=== PATIENT | male | born 1945 | race Hispanic/Latino ===

== ENCOUNTER 2020-03-12 15:16 | Inpatient (IN) | payer MEDICARE ==
[~2020-03-12] VITALS: Ht 177.8 cm; Wt 122.5 kg
[2020-03-12] MEDS ORDERED: FUROSEMIDE INJ 10 MG/ML 4 ML VIAL IV ONE (16:15)
--- NOTE | 2020-03-12 16:37 | Diagnostic Imaging Report ---
Chest, 2 views, 03/12/2020. History: Shortness of breath. Comparison: None available. Findings: The cardiomediastinal silhouette and pulmonary vasculature are prominent with hazy bilateral perihilar and bibasilar opacities. There is minimal blunting of the costophrenic sulci bilaterally. A small amount of fluid is noted within the major fissure. There are no acute osseous or soft tissue abnormalities. Impression: Findings suggestive of mild CHF with bibasilar atelectasis and small pleural effusions. Signed by: Kenny Wright on 03/12/2020 4:33 PM
[2020-03-12] MEDS ORDERED: FUROSEMIDE INJ 10 MG/ML 4 ML VIAL ONE (16:41)
--- NOTE | 2020-03-12 17:12 | NUR ---
pt is not sure of his home medications. advised for pt to have bring meds from home if admits
[2020-03-12] MEDS ORDERED: ONDANSETRON HCL INJ 2MG/ML 2ML 2 MG/ML VIAL IV STA (17:18)
[2020-03-12] MEDS ORDERED: KETOROLAC TROMETHAMINE 30 MG/ML VIAL IV STA (17:18)
[2020-03-12] MEDS ORDERED: LASIX40 MG PO (17:28)
[2020-03-12] MEDS ORDERED: ALBUTEROL0.63 MG/3 INH (17:28)
[2020-03-12] MEDS ORDERED: LOTRIMIN AF12 GM TOP (17:28)
[2020-03-12] MEDS ORDERED: METOPROLOL TART75 MG (17:28)
[2020-03-12] MEDS ORDERED: METFORMIN HCL850 MG PO (17:28)
[2020-03-12] MEDS ORDERED: FLUOCINONIDE120 GM TOP (17:28)
[2020-03-12] MEDS ORDERED: ISOSORBIDE MONO30 MG PO (17:28)
[2020-03-12] MEDS ORDERED: GLIMEPIRIDE2 MG PO (17:28)
--- OUTSIDE RECORDS SUMMARY | 2020-03-12 17:34 | XMS REPORT | Clinical Summary ---
Author Author NITZA Concur[facility] CorporationSt[facility] Medical CenterOnTrak Software [facility] Concur[facility] CorporationSt[facility] CenterEquiendo [facility] Address Unknown Phone Unavailable Care Team Providers Care Brewery Technician Name Role Phone Robi Levine MD PCP Allergies No Known Allergies Medications End Date Status Medication Sig Dispensed Refills Start Date Active amLODIPine (NORVASC) 10 Take 10 mg by 0 MG tablet mouth daily. Active aspirin 325 MG tablet Take 325 mg 0 by mouth daily. Active atorvastatin (LIPITOR) 20 Take 20 mg by 0 MG tablet mouth daily. Active benazepril (LOTENSIN) 20 Take 20 mg by 0 MG tablet mouth 3 (three) times daily. Active fenofibrate Take 160 mg 0 (TRIGLIDE,LOFIBRA) 160 MG by mouth tablet daily. Active furosemide (LASIX) 40 MG Take 40 mg by 0 tablet mouth 2 (two) times daily. Active glimepiride (AMARYL) 2 MG Take 2 mg by 0 tablet mouth 2 (two) times daily . Active hydrocortisone Place 0 (ANUSOL-HC) 2.5 % rectal rectally 2 cream (two) times daily. Active meclizine (ANTIVERT) 12.5 Take 12.5 mg 0 mg tablet by mouth 3 (three) times daily as needed. Active metFORMIN (GLUCOPHAGE) Take 850 mg 0 850 MG tablet by mouth 3 (three) times daily. Active omeprazole (PRILOSEC) 20 Take 20 mg by 0 MG capsule mouth daily. Active saxagliptin 5 mg Tab Take by 0 mouth. Active oxymetazoline (AFRIN) 2 sprays by 0 0.05 % nasal spray Nasal route 2 (two) times daily as needed for Congestion. Active metoprolol (LOPRESSOR) 25 Take 12.5 mg 0 12/2 1/201 MG tablet by mouth 2 7 (two) times daily. Active Problems Problem Noted Date CAD (coronary artery disease) 06/02/2017 Exertional angina 06/02/2017 Essential hypertension 06/02/2017 Mixed hyperlipidemia 06/02/2017 Abnormal nuclear stress test ( moderate inferior fixe d defect ) 05-06-17 06/02/2017 Social History Date Tobacco Use Types Packs/Day Years Used Never Smoker Smokeless Tobacco: Never Used Drinks/Week oz/Week Comments Alcohol Use No Sex Assigned at Date Recorded Not on file Last Filed Vital Signs Not on file Plan of Treatment Health Maintenance Due Date Last Done Comments PNEUMOCOCCAL 65+ YRS (2 2012 04/20/2016, of 2 - PPSV23) 04/28/2015, 10/15/2010 MEDICARE ANNUAL WELLNESS 05/31/2018 (YEAR 2 or FIRST YEAR if no IPPE) INFLUENZA VACCINE (#1) 2020 04/20/2016, 04/28/2015, 03/01/2014, Additional history exists COLON CANCER SCREENING 05/13/2027 05/13/2017 COLONOSCOPY Implants Device Identifier Shelf Expiration Date Model / Serial / L ot Implanted Type Area Manufactur er [id number] 02/28/2018 [id number] / / [id number] Synergy Stents-Cor Right: Coronary [place] Implanted: Qty: 1 on 06/02/2017 by Nikolai Welsh MD at [facility] Description:MLAD [id number] 06/17/2017 [id number] / / [id number] Synergy Stents-Cor Right: Coronary [place] Implanted: Qty: 1 on 06/02/2017 by Nikolai Welsh MD at [facility] Description:MLAD Results Not on fileafter 03/12/2019 Insurance Type Payer Benefit Subscriber ID Effective Phone Address Plan / Dates Group [facility] [id number] 2017-P MEDICARE resent ADV [id number] Advance Directives For more information, please contact: [phone] Date Inactivated Comments Code Status Date Activated 06/03/2017 12:55 PM Full Code 06/02/2017 6:09 PM This code status was determined by: Patient
--- OUTSIDE RECORDS SUMMARY | 2020-03-12 17:34 | XMS REPORT | Continuity of Care Document ---
Author Author [facility] t Organization [facility] Address [address] [place] [address] Phone Unavailable Care Team Providers Care Packing And Stamping Machine Operator Name Role Phone Julianna LOCO, Robi PCP Jesse PERES Attphys Unavailable BATISTA, BELL Attphys Unavailable BATISTA, BELL Admphys Unavailable Problems Condition Name Condition Details Condition Category Status Onset Date Resolution Date Last Treatment Date Treating Clinician Comments Source CAD (coronary artery disease) CAD (coronary artery disease) Disease Active 2017-06-02 00:00:00 [facility] Exertional angina Exertional angina Disease Active 2017-06-02 00:00:00 [facility] Essential hypertension Essential hypertension Disease Active 2017-06-02 00:00:00 [facility] Mixed hyperlipidemia Mixed hyperlipidemia Disease Active 00:00:00 [facility] Abnormal nuclear stress test ( moderate inferior fixed defect ) 05-06-17 Abnormal nuclear stress test ( moderate inferior fixed defect ) 05-06-17 Disease Active 2017-06-02 00:00:00 [facility] Allergies, Adverse Reactions, Alerts This patient has no known allergies or adverse reactions. Social History Social Habit Start Date Stop Date Quantity Comments Source Sex Assigned At [facility] Tobacco use and exposure 2017-06-07 00:00:00 2017-06-07 00:00:00 Gita golden used [facility] Alcohol intake 2017-06-07 00:00:00 2017-06-07 00:00:00 Current non-drinker of alcohol (finding) [facility] Corie r Smoking Status Start Date Stop Date Source [facility] [place] Medications Ordered Medication Name Filled Medication Name Start Date Stop Da te Current Medication? Ordering Clinician Indication Dosage Frequency Signature (SIG) Comments Components Source amLODIPine (NORVASC) 10 MG tablet 2017-06-03 10:55:44 Yes 10mg QD Take 10 mg by mouth daily. [facility] aspirin 325 MG tablet 2017-06-03 10:55:44 Yes 325mg QD Take 325 mg by mouth daily. [facility] atorvastatin (LIPITOR) 20 MG tablet 2017-06-03 10:55:44 Yes 20mg QD Take 20 mg by mouth daily. [facility] benazepril (LOTENSIN) 20 MG tablet 2017-06-03 10:55:44 Y es 20mg Q.[id number] Take 20 mg by mouth 3 (three) times daily. [facility] fenofibrate (TRIGLIDE,LOFIBRA) 160 MG tablet 2017-06-03 10:55:44 Yes 160mg QD Take 160 mg by mouth daily. [facility] furosemide (LASIX) 40 MG tablet 2017-06-03 10:55:44 Yes 40mg Q.5D Take 40 mg by mouth 2 (two) times daily. [facility] glimepiride (AMARYL) 2 MG tablet 2017-06-03 10:55:44 Yes 2mg Q.5D Take 2 mg by mouth 2 (two) times daily . [facility] hydrocortisone (ANUSOL-HC) 2.5 % rectal cream 2017-06-03 10:55:[address]ally 2 (two) times daily. [facility] meclizine (ANTIVERT) 12.5 mg tablet 2017-06-03 10:55:44 Yes 12.5mg Take 12.5 mg by mouth 3 (three) times daily as needed. [facility] metFORMIN (GLUCOPHAGE) 850 MG tablet 2017-06-03 10:55:44 Yes 850mg Q.[id number] Take 850 mg by mouth 3 (three) times daily. [facility] omeprazole (PRILOSEC) 20 MG capsule 2017-06-03 10:55:44 Yes 20mg QD Take 20 mg by mouth daily. [facility] saxagliptin 5 mg Tab 2017-06-03 10:55:44 Yes Take by mouth. [facility] oxymetazoline (AFRIN) 0.05 % nasal spray 2017-06-03 10:55:44 Yes 2{spray} 2 sprays by Nasal route 2 (t wo) times daily as needed for Congestion. [facility] metoprolol (LOPRESSOR) 25 MG tablet 2017-05-19 00:00:00 Yes 12.5mg Q.5D Take 12.5 mg by mouth 2 (two) times daily. [facility] Procedures This patient has no known procedures. Plan of Care Planned Activity Planned Date Details Comments Source Future Scheduled Test 2027-05-13 00:00:00 Screening for kylee gnant neoplasm of colon (procedure) [code = 203807475] [facility] Future Scheduled Test 2020-01-29 00:00:00 INFLUENZA VACCINE (#1) [code = INFLUENZA VACCINE (#1)] [facility] Future Scheduled Test 2018-05-31 00:00:00 MEDICARE ANNUAL WE LLNESS (YEAR 2 or FIRST YEAR if no IPPE) [code = MEDICARE ANNUAL WELLNESS (YEAR 2 or FIRST YEAR if no IPPE)] [facility] Future Scheduled Test 2012 00:00:00 PNEUMOCOCCAL 65+ Y RS (2 of 2 - PPSV23) [code = PNEUMOCOCCAL 65+ YRS (2 of 2 - PPSV23)] [facility] Results Test Description Test Time Test Comments Results Result Comments Source CXR 2 VIEW - HOPD 2020-03-12 16:32:00 [facility] : 1945 Sex: M [facility] [address] [address] Patient Name: VARUN CEBALLOS JR MR #: [id number] : 1945 Age/Sex: 74/M Req #: [id number] Adm Physician: Ordered by: CEASAR PERES MD Report #: [id number] Location: [facility] Room/Bed: Procedure: [id number] HOPD/CXR 2 VIEW - HOPD Exam Date: 03/12/20 Exam Time: 1628 REPORT STATUS: Signed Chest, 2 views, 03/12/2020. History: Shortness of breath. Comparison: None available. Findings: The cardiomediastinal silhouette and pulmonary vasculature are prominent with hazy bilateral perihilar and bibasilar opacities. There is minimal blunting of the costophrenic sulci bilaterally. A small amount of fluid is noted within the major fissure. There are no acute osseous or soft tissue abnormalities. Impression: Findings suggestive of mild CHF with bibasilar atelectasis and small pleural effusions. Signed by: Kenny Wright on 03/12/2020 4:33 PM Dictated By: KENNY WRIGHT MD 32 Transcribed By: GABO on 03/12/201632 COPY TO: CEASAR PERES MD POCT-GLUCOSE METER 2017-06-03 08:16:00 Test Item POC-GLUCOSE METER (BEAKER) (test code = 1538) 234 mg/dL 70-110 H TESTED AT [address] [address] BASIC METABOLIC [id number] 07:01:00* Test Item Value Reference Range Interpretation Comments SODIUM (BEAKER) (test code = 381) 137 meq/L 136-145 POTASSIUM (BEAKER) (test code = 379) 4.3 meq/L 3.5-5.1 CHLORIDE (BEAKER) (test code = 382) 108 meq/L 98-107 H CO2 (BEAKER) (test code = 355) 23 meq/L 22-29 BLOOD UREA NITROGEN (BEAKER) (test code = 354) 14 mg/dL 7-21 CREATININE (BEAKER) (test code = 358) 1.12 mg/dL 0.57-1.25 GLUCOSE RANDOM (BEAKER) (test code = 652) 224 mg/dL 70-105 H CALCIUM (BEAKER) (test code = 697) 8.8 mg/dL 8.4-10.2 EGFR (BEAKER) (test code = 1092) 65 mL/min/1.73 sq m ESTIMATED GFR IS NOT ACCURATE CREATININE CLEARANCE IN PREDICTING GLOMERULAR FILTRATION RATE. ESTIMATED GFR IS NOT APPLICABLE FOR DIALYSIS PATIENTS. CBC (HEMOGRAM ONLY)2017-06-03 05:58:00* Test Item Value Reference Range Interpretation Comments WHITE BLOOD CELL COUNT (BEAKER) (test code = 775) 7.1 K/ L 3.5- 10.5 RED BLOOD CELL COUNT (BEAKER) (test code = 761) 3.94 M/ L 4.63-6 .08 L HEMOGLOBIN (BEAKER) (test code = 410) 11.4 GM/DL 13.7-17.5 L HEMATOCRIT (BEAKER) (test code = 411) 35.2 % 40.1-51.0 L MEAN CORPUSCULAR VOLUME (BEAKER) (test code = 753) 89.3 fL 79. 0-92.2 MEAN CORPUSCULAR HEMOGLOBIN (BEAKER) (test code = 751) 28.9 pg 25.7-32.2 MEAN CORPUSCULAR HEMOGLOBIN CONC (BEAKER) (test code = 752) 32.4 GM/DL 32.3-36.5 RED CELL DISTRIBUTION WIDTH (BEAKER) (test code = 412) 14.3 % 11.6-14.4 PLATELET COUNT (BEAKER) (test code = 756) 252 K/CU MM 150-450 MEAN PLATELET VOLUME (BEAKER) (test code = 754) 10.9 fL 9.4-12 .4 NUCLEATED RED BLOOD CELLS (BEAKER) (test code = 413) 0 /100 WBC 0 -0 POCT-GLUCOSE [id number] 21:09:00* Test Item Value Reference Range Interpretation Comments POC-GLUCOSE METER (BEAKER) (test code = 1538) 293 mg/dL 70-110 H TESTED AT [place] [id number] 19:40:00* Test Item Value Reference Range Interpretation Comments ACTIVATED CLOTTING TIME (BEAKER) (test code = 441) 109 sec TESTED AT [place] [id number] POCT-GLUCOSE [id number] 18:18:00* Test Item Value Reference Range Interpretation Comments POC-GLUCOSE METER (BEAKER) (test code = 1538) 189 mg/dL 70-110 H TESTED AT [place] [address] [id number] 17:27:00* Test Item Value Reference Range Interpretation Comments ACTIVATED CLOTTING TIME (BEAKER) (test code = 441) 175 sec TESTED AT [address] [address] [id number] 15:18:00* Test Item Value Reference Range Interpretation Comments ACTIVATED CLOTTING TIME (BEAKER) (test code = 441) 296 sec TESTED AT [place] [id number] POCT-GLUCOSE [id number] 08:24:00* Test Item Value Reference Range Interpretation Comments POC-GLUCOSE METER (BEAKER) (test code = 1538) 230 mg/dL 70-110 H TESTED AT [place] [address]
[2020-03-12] MEDS ORDERED: SYMBICORT 80-10.2 GM INH (17:37)
[2020-03-12] MEDS ORDERED: NITROSTAT0.4 MG SL (17:37)
[2020-03-12] MEDS ORDERED: FISH OIL 1,0001 EAC2 (17:37)
[2020-03-12] MEDS ORDERED: TRICOR145 MG PO (17:37)
[2020-03-12] MEDS ORDERED: PLAVIX75 MG PO (17:37)
[2020-03-12] MEDS ORDERED: ASPIRIN81 MG PO (17:37)
[2020-03-12] MEDS ORDERED: CINNAMON500 MG (17:37)
[2020-03-12] MEDS ORDERED: TYLENOL325 MG PO (17:37)
[2020-03-12] MEDS ORDERED: PROTONIX40 MG PO (17:37)
[2020-03-12] MEDS ORDERED: ONGLYZA5 MG PO (17:37)
[2020-03-12] MEDS ORDERED: CLOTRIMAZOLE15 GM TOP (17:37)
[2020-03-12] MEDS ORDERED: ATORVASTATIN CA20 MG PO (17:37)
[2020-03-12] MEDS ORDERED: DIOVAN160 MG PO (17:37)
[2020-03-12] MEDS ORDERED: METOPROLOL TART25 MG PO (17:37)
[2020-03-12] MEDS ORDERED: SODIUM CHLORIDE FLUSH 10 ML SYR INJ PRN (17:45)
[2020-03-12] MEDS ORDERED: ONDANSETRON HCL INJ 2MG/ML 2ML 2 MG/ML VIAL IV PRN (17:45)
[2020-03-12] MEDS ORDERED: ONDANSETRON HCL INJ 2MG/ML 2ML 2 MG/ML VIAL ONE (17:48)
[2020-03-12] MEDS ORDERED: KETOROLAC TROMETHAMINE 30 MG/ML VIAL ONE (17:48)
--- NOTE | 2020-03-12 18:01 | NUR ---
[facility] called for transport
--- OUTSIDE RECORDS SUMMARY | 2020-03-12 18:04 | XMS REPORT | Clinical Summary ---
Author Author [facility]IT[facility] Address Unknown Phone Unavailable Care Team Providers Care Weight Inspector Name Role Phone Rboi Levine MD PCP Allergies No Known Allergies [...] L ot Implanted Type Area Manufactur er [id number] 02/28/2018 [id number] / / [id number] Synergy Stents-Cor Right: Coronary [place] Implanted: Qty: 1 on 06/02/2017 by Nioklai Welsh MD at [facility] Description:MLAD [id number] 06/17/2017 [id number] / / [id number] Synergy Stents-Cor Right: Coronary [place] Implanted: Qty: 1 on 06/02/2017 by Nikolai Welsh MD at [facility] Description:MLAD Results Not on fileafter 03/12/2019 Insurance Type Payer Benefit Subscriber ID Effective Phone Address Plan / Dates Group [facility] [id number] 2017-P MEDICARE resent ADV [id number] Advance Directives For more information, please contact: [phone] Date Inactivated Comments Code Status Date Activated 06/03/2017 12:55 PM Full Code 06/02/2017 6:09 PM This code status was determined by: Patient
--- OUTSIDE RECORDS SUMMARY | 2020-03-12 18:05 | XMS REPORT | Continuity of Care Document ---
Author Author [facility] t Organization [facility] Address [address] [address] Phone Unavailable Care Team Providers Care Decision Support Manager Name Role Phone Julianna LOCO, Robi PCP Jesse PERES Attphys Unavailable BATISTA, BELL Attphys Unavailable BATISTA, BELL Admphys Unavailable Problems Condition Name Condition Details Condition Category Status Onset Date Resolution Date Last Treatment Date Treating Clinician Comments Source CAD (coronary artery disease) CAD (coronary artery disease) Disease Active 2017-06-02 00:00:00 [facility] Exertional angina Exertional angina Disease Active 2017-06-02 00:00:00 [facility] Essential hypertension Essential hypertension Disease Active 2017-06-02 00:00:00 [facility] Mixed hyperlipidemia Mixed hyperlipidemia Disease Active 00:00:00 [facility] Abnormal nuclear stress test ( moderate inferior fixed defect ) 05-06-17 Abnormal nuclear stress test ( moderate inferior fixed defect ) 05-06-17 Disease Active 2017-06-02 00:00:00 [facility] Allergies, Adverse Reactions, Alerts This patient has no known allergies or adverse reactions. Social History Social Habit Start Date Stop Date Quantity Comments Source Sex Assigned At [facility] Tobacco use and exposure 2017-06-07 00:00:00 2017-06-07 00:00:00 Gita golden used [facility] Alcohol intake 2017-06-07 00:00:00 2017-06-07 00:00:00 Current non-drinker of alcohol (finding) [facility] Corie r Smoking Status Start Date Stop Date Source [facility] [place] Medications Ordered Medication Name Filled Medication Name Start Date Stop Da te Current Medication? Ordering Clinician Indication Dosage Frequency Signature (SIG) Comments Components Source amLODIPine (NORVASC) 10 MG tablet 2017-06-03 10:55:44 Yes 10mg QD Take 10 mg by mouth daily. [facility] aspirin 325 MG tablet 2017-06-03 10:55:44 Yes 325mg QD Take 325 mg by mouth daily. [facility] atorvastatin (LIPITOR) 20 MG tablet 2017-06-03 10:55:44 Yes 20mg QD Take 20 mg by mouth daily. [facility] benazepril (LOTENSIN) 20 MG tablet 2017-06-03 10:55:44 Y es 20mg Q.[id number] Take 20 mg by mouth 3 (three) times daily. [facility] fenofibrate (TRIGLIDE,LOFIBRA) 160 MG tablet 2017-06-03 10:55:44 Yes 160mg QD Take 160 mg by mouth daily. [facility] furosemide (LASIX) 40 MG tablet 2017-06-03 10:55:44 Yes 40mg Q.5D Take 40 mg by mouth 2 (two) times daily. [facility] glimepiride (AMARYL) 2 MG tablet 2017-06-03 10:55:44 Yes 2mg Q.5D Take 2 mg by mouth 2 (two) times daily . [facility] hydrocortisone (ANUSOL-HC) 2.5 % rectal cream 2017-06-03 10:55:[address] rectally 2 (two) times daily. [facility] meclizine (ANTIVERT) 12.5 mg tablet 2017-06-03 10:55:44 Yes 12.5mg Take 12.5 mg by mouth 3 (three) times daily as needed. [facility] metFORMIN (GLUCOPHAGE) 850 MG tablet 2017-06-03 10:55:44 Yes 850mg Q.[id number] Take 850 mg by mouth 3 (three) times daily. [facility] omeprazole (PRILOSEC) 20 MG capsule 2017-06-03 10:55:44 Yes 20mg QD Take 20 mg by mouth daily. [facility] saxagliptin 5 mg Tab 2017-06-03 10:55:44 Yes Take by mouth. [facility] oxymetazoline (AFRIN) 0.05 % nasal spray 2017-06-03 10:55:44 Yes 2{spray} 2 sprays by Nasal route 2 (t wo) times daily as needed for Congestion. [facility] metoprolol (LOPRESSOR) 25 MG tablet 2017-05-19 00:00:00 Yes 12.5mg Q.5D Take 12.5 mg by mouth 2 (two) times daily. [facility] Procedures This patient has no known procedures. Plan of Care Planned Activity Planned Date Details Comments Source Future Scheduled Test 2027-05-13 00:00:00 Screening for kylee gnant neoplasm of colon (procedure) [code = 924091956] [facility] Future Scheduled Test 2020-01-29 00:00:00 INFLUENZA VACCINE (#1) [code = INFLUENZA VACCINE (#1)] [facility] Future Scheduled Test 2018-05-31 00:00:00 MEDICARE ANNUAL WE LLNESS (YEAR 2 or FIRST YEAR if no IPPE) [code = MEDICARE ANNUAL WELLNESS (YEAR 2 or FIRST YEAR if no IPPE)] [facility] Future Scheduled Test 2012 00:00:00 PNEUMOCOCCAL 65+ Y RS (2 of 2 - PPSV23) [code = PNEUMOCOCCAL 65+ YRS (2 of 2 - PPSV23)] [facility] Results Test Description Test Time Test Comments Results Result Comments Source CXR 2 VIEW - HOPD 2020-03-12 16:32:00 [facility] 1945 Sex: M [facility] [address] [address] Patient Name: VARUN CEBALLOS JR MR #: [id number] : 1945 Age/Sex: 74/M Req #: [id number] Adm Physician: Ordered by: CEASAR PERES MD Report #: [id number] Location: [facility] Room/Bed: Procedure: [id number] HOPD/CXR 2 VIEW - HOPD Exam Date: [...] 1538) 234 mg/dL 70-110 H TESTED AT [address] [address] BASIC METABOLIC [id number] 07:01:00* Test Item Value Reference Range Interpretation [...] 413) 0 /100 WBC 0 -0 POCT-GLUCOSE [id number] 21:09:00* Test Item Value Reference Range Interpretation Comments POC-GLUCOSE METER (BEAKER) (test code = 1538) 293 mg/dL 70-110 H TESTED AT [place] [id number] [id number] 19:40:00* Test Item Value Reference Range Interpretation Comments ACTIVATED CLOTTING TIME (BEAKER) (test code = 441) 109 sec TESTED AT [place] [id number] POCT-GLUCOSE [id number] 18:18:00* Test Item Value Reference Range Interpretation Comments POC-GLUCOSE METER (BEAKER) (test code = 1538) 189 mg/dL 70-110 H TESTED AT [place] [address] [id number] 17:27:00* Test Item Value Reference Range Interpretation Comments ACTIVATED CLOTTING TIME (BEAKER) (test code = 441) 175 sec TESTED AT [address] [address] [id number] 15:18:00* Test Item Value Reference Range Interpretation Comments ACTIVATED CLOTTING TIME (BEAKER) (test code = 441) 296 sec TESTED AT [place] [address] POCT-GLUCOSE [id number] 08:24:00* Test Item Value Reference Range Interpretation Comments POC-GLUCOSE METER (BEAKER) (test code = 1538) 230 mg/dL 70-110 H TESTED AT [place] [address]
--- NOTE | 2020-03-12 18:25 | Emergency Department Note ---
History of Present Illnes History of Present Illness Chief Complaint: Respiratory History of Present Illness This is a 74 year old male SOB when lays flat since yesterday. LE swelling since yesterday. Had routine physical 2 days ago and taken of lasix for unknown reason. Has not taken any home meds today, including BP meds due to not feeling well. Historian: Patient Arrival Mode: Car Pick Up And Delivery Driver Required: No Onset (how long ago): day(s) (2) Duration (how long): day(s) (2) Progression: worsening Chronicity: recurrent Context: Denies recent illness, Denies trauma/injury Relieving factors: other (upright) Exacerbating factors: other (lay flat) Past Medical/Family History Physician Review I have reviewed the patient's past medical and family history. Any updates have been documented here. Past Medical History Recent Fever: No Clinical Suspicion of Infectio: No New/Unexplained Change in Ment: No Past Medical History: Hypertension, Diabetes, CHF, NE, CAD, Hyperlipedemia Other Medical History: morbid obesity non smoker Past Surgical History: T&A, PCI Social History Smoking Cessation: Never Smoker Counseling Performed: No Alcohol Use: Occasional Any Illegal Drug Use: No Physically hurt or threatened: No Other Any Pre-Existing Lines (PICC,: No Review of Systems Review of Systems Constitutional: Denies chills, Denies fever EENTM: Denies nose congestion, Denies throat pain Cardiovascular: Reports edema; Denies chest pain Respiratory: Reports dyspnea, Reports dyspnea on exertion; Denies cough, Denies pain on inspiration Gastrointestinal: Denies abdominal pain, Denies diarrhea, Denies nausea, Denies vomiting Genitourinary: Denies dysuria Musculoskeletal: Reports back pain (mild, chronic) Integumentary: Denies rash Neurological: Reports headache (mild) Endocrine: Denies increased hunger Hematological/Lymphatic: Denies anemia, Denies easy bleeding Physical Exam Related Data Allergies: Coded Allergies: No Known Allergies (Unverified , 03/12/20) Triage Vital Signs Vital Signs Date Time Temp Pulse Resp B/P (MAP) Pulse Ox O2 Delivery O2 Flow Rate FiO2 03/12/20 15:33 97.3 93 20 209/113 96 Room Air Physical Exam CONSTITUTIONAL Constitutional: Present well-developed, Present well-nourished, Present other (completes full sentences, pauses between sentences. Able to walk to bathroom, but pauses occasionally to catch breath.) HENT HENT: Present normocephalic, Present atraumatic, Present oropharynx clear/moist, Present nose normal; Absent mucosae dry EYES Eyes: Reports PERRL, Reports conjunctivae normal NECK Neck: Present ROM normal PULMONARY Pulmonary: Present rhonchi, Present other (< breath sounds at bilateral bases); Absent respiratory distress CARDIOVASCULAR Cardiovascular: Present regular rhythm, Present heart sounds normal, Present capillary refill normal, Present normal rate, Present LLE edema, Present RLE edema GASTROINTESTINAL Abdominal: Present soft, Present nontender, Present bowel sounds normal; Absent tender GENITOURINARY SKIN Skin: Present rash MUSCULOSKELETAL Musculoskeletal: Present edema NEUROLOGICAL Neurological: Present alert, Present oriented x 3, Present no gross motor or sensory deficits PSYCHOLOGICAL Psychological: Present mood/affect normal Results Laboratory Laboratory comments Troponin neg, Na 142, K 4.3, CO2 26, Cr 1.9, BUN 14, Glu 124, WBC 8.3, HGB 11.5, HCT 35.9 Imaging Imaging Comments History: Shortness of breath. Comparison: None available. Findings: The cardiomediastinal silhouette and pulmonary vasculature are prominent with hazy bilateral perihilar and bibasilar opacities. There is minimal blunting of the costophrenic sulci bilaterally. A small amount of fluid is noted within the major fissure. There are no acute osseous or soft tissue abnormalities. Impression: Findings suggestive of mild CHF with bibasilar atelectasis and small pleural effusions. Signed by: Kenny Wright on 03/12/2020 4:33 PM Dictated By: KENNY WRIGHT MD [id number] Transcribed By: GABO on 03/12/20 1633 Diagnostics Tests Diagnostic comments No urinal's available, not able to measure I&O's. Procedures 12 Lead ECG Interpretation ECG Interpretation : ECG: ECG 1 Pick Up And Delivery Driver: Interpreted by ED physician Date: Mar 12, 2020 Prior ECG tracings: reviewed Rhythm: sinus rhythm BPM: 87 QRS axis: normal ST segments normal: Yes Pacin% capture Leads: Right sided leads used Clinical Impression: normal ECG Assessment & Plan Medical Decision Making MDM Patient with CHF who presents with orthpnea gradually worsening since stopped lasix two days ago. Expect PCP stopped lasix due to Cr. which is 1.9 today. Gave IV lasix which has mildly improved symptoms. Will admit for further diuresis and watch creatinine and adjust home medications. Considered, but not limited to dx of: NE, ACS, PE, Pneumonia, COVID, Viral illness, CHF, COPD. Spoke with Dr. Chou who agreed to admit patient. Reassessment Reassessment time: 18:00 Reassessment headache resolved, SOB improved Assessment & Plan Final Impression: (1) Acute exacerbation of CHF (congestive heart failure) (2) Hypertension (3) Diabetes Depart Disposition: ADMITTED Last Vital Signs Date Time Temp Pulse Resp B/P (MAP) Pulse Ox O2 Delivery O2 Flow Rate FiO2 03/12/20 15:42 76 18 217/100 95 Room Air 03/12/20 15:33 97.3 Home Meds Reported Medications [place]-3 Fatty Acids/Fish Oil (FISH OIL 1,000 MG CAPSULE) 1 Each Capsule 03/12/20 Fenofibrate (TRICOR) 145 Mg Tab, 160 MG PO DAILY, #30 TAB 03/12/20 Clotrimazole (CLOTRIMAZOLE) 15 Gm Cream..g., 1 % TOP DAILY, EACH 03/12/20 Clopidogrel Bisulfate* (PLAVIX) 75 Mg Tablet, 75 MG PO DAILY, #30 TAB 03/12/20 Cinnamon Bark (CINNAMON) 500 Mg Capsule 03/12/20 Budesonide/Formoterol Fumarate (SYMBICORT 80-4.5 MCG INHALER) 10.2 Gm Hfa.aer.ad, 2 EACH INH BID, EACH 03/12/20 Atorvastatin Calcium (ATORVASTATIN CALCIUM) 20 Mg Tablet, 20 MG PO HS, #30 TAB 03/12/20 Aspirin (ASPIRIN) 81 Mg Tab.chew, 1 TAB PO DAILY 03/12/20 Valsartan (DIOVAN) 160 Mg Tab, 320 MG PO DAILY, #60 TAB 03/12/20 Acetaminophen* (TYLENOL*) 325 Mg Tablet, 650 MG PO PRN 03/12/20 Pantoprazole Sodium (PROTONIX) 40 Mg Suspdr.pkt, 40 MG PO DAILY, #30 TAB 03/12/20 Saxagliptin Hcl (ONGLYZA) 5 Mg Tablet, 1 TAB PO DAILY 03/12/20 Nitroglycerin (NITROSTAT) 0.4 Mg Tab.subl, 0.4 MG SL ONCE PRN for CHEST PAIN, TAB 03/12/20 Metoprolol Tartrate (METOPROLOL TARTRATE) 25 Mg Tablet, 25 MG PO TID, TAB 03/12/20 Metformin Hcl (METFORMIN HCL) 850 Mg Tablet, 800 MG PO TID, #30 TAB 03/12/20 Isosorbide Mononitrate (ISOSORBIDE MONONITRATE ER) 30 Mg Tab.er.24h, 30 MG PO DAILY, #30 TAB 03/12/20 Glimepiride (GLIMEPIRIDE) 2 Mg Tablet, 2 MG PO BID, TAB 03/12/20 Furosemide (LASIX) 40 Mg Tablet, 40 MG PO TID, #30 TAB 03/12/20 Fluocinonide (Fluocinonide) 120 Gm Cream..g., 0.05 % TOP BIDWM rt calf 03/12/20 Clotrimazole (Lotrimin AF) 12 Gm Cream..g., 1 APPLIC TOP BID, GM 03/12/20 Albuterol Sulfate (ALBUTEROL SULFATE) 0.63 Mg/3 Ml Vial.neb, 2-4 INH Q4HR PRN for SHORTNESS OF BREATH 03/12/20 Discontinued Reported Medications Metoprolol Tartrate (Metoprolol Tartrate) 75 Mg Tablet 03/12/20 Medications in the ED Furosemide 40 mg ONCE ONCE IV Last administered on 03/12/20at 16:39; Admin Dose 40 MG; Start 03/12/20 at 16:15; Stop 03/12/20 at 16:16; Status DC Furosemide 40 mg STK-MED ONCE .ROUTE ; Start 03/12/20 at 16:41; Stop 03/12/20 at 16:35; Status DC CEASAR PERES MD Mar 12, 2020 17:22
--- NOTE | 2020-03-12 18:27 | NUR ---
called [facility] for transport to lab for covid swab
[2020-03-12 20:00] VITALS: BP 115/62
[2020-03-13] VITALS (8 sets, daily range): BP systolic 118–170; BP diastolic 61–86
[2020-03-13 07:13] LABS: ALBUMIN 2.9 g/dL (3.5-5.0); ALBUMIN/GLOBULIN RATIO 0.9 (0.8-2.0); ANION GAP 13.1 mmol/L (8-16); CALCIUM 8.7 mg/dL (8.4-10.2); CREATININE, SERUM 1.91 mg/dL (0.72-1.25); POTASSIUM 4.1 mmol/L (3.5-5.1)
[2020-03-13] MEDS ORDERED: ALBUTEROL SULF 0.083% NEB SOLN 3 ML NEB INH PRN (08:15)
[2020-03-13] MEDS ORDERED: NITROGLYCERIN 0.4 MG SUBL SL PRN (08:15)
[2020-03-13] MEDS ORDERED: DEXTROSE 50% SYRINGE 50 ML IV PRN (08:15)
[2020-03-13] MEDS ORDERED: PANTOPRAZOLE SODIUM 40 MG SUSPDR.PKT PO SCH (09:00)
[2020-03-13] MEDS: CLOTRIMAZOLE 1% CR 15 GM TOP SCH (09:00)
[2020-03-13] MEDS: ISOSORBIDE MONONITRATE 30 MG TAB CR PO SCH (09:16)
[2020-03-13] MEDS: METOPROLOL TARTRATE 25 MG TAB PO SCH ×3 (09:16→20:32)
[2020-03-13] MEDS: FUROSEMIDE INJ 10 MG/ML 4 ML VIAL IV SCH ×2 (09:16→20:31)
[2020-03-13] MEDS: FENOFIBRATE 145 MG TAB PO SCH (09:16)
[2020-03-13] MEDS: ASPIRIN 81 MG CHEW TAB PO SCH (09:16)
[2020-03-13] MEDS: CLOPIDOGREL BISULFATE 75 MG TAB PO SCH (09:16)
[2020-03-13] MEDS ORDERED: PANTOPRAZOLE SOD 40 MG TABEC PO SCH (10:30)
[2020-03-13] MEDS: INSULIN REGULAR, HUMAN 100 UNIT/1 ML 3ML VIAL SQ SCH ×3 (12:53→20:35)
[2020-03-13] MEDS ORDERED: LANTUS 3ML100 UNITS/ SQ (14:38)
[2020-03-13] MEDS: PANTOPRAZOLE SOD 40 MG TABEC PO SCH (16:23)
[2020-03-13] MEDS: GLIMEPIRIDE 2 MG TAB PO SCH (16:23)
[2020-03-13] MEDS: BUDESONIDE/FORMOTEROL FUMARATE 80/4.5MCG 6.9 GM INH AEROSOL IH SCH ×2 (19:22→19:28)
[2020-03-13] MEDS: ACETAMINOPHEN 325 MG TAB PO SCH (19:35)
[2020-03-13] MEDS: ATORVASTATIN 20 MG TAB PO SCH (20:31)
[2020-03-14] VITALS (7 sets, daily range): BP systolic 115–189; BP diastolic 70–89
--- NOTE | 2020-03-14 03:33 | History and Physical ---
PRIMARY CARE PHYSICIAN: Dr. Levine at [facility]. CHIEF COMPLAINT: Increased shortness of breath. HISTORY OF PRESENT ILLNESS: This is a 74-year-old male with past medical history of hypertension, CHF, diabetes type 2, ND status post two stents, and high cholesterol presented to the ER with complaints of increasing shortness of breath. He reports he had a blood work and physical with his PCP on March 04 and due to his elevated kidney function tests they had discontinued his Lasix. He started noticing increased shortness of breath few days later and worsening over time. He reports currently he is unable to lay flat due to the significant shortness of breath, he denies any cough, fever, nausea, vomiting, dizziness, or chest pain. He reports not voiding as much. He was given Lasix in the ER on the night and reports that has improved his shortness of breath a bit. He reports Dr. Anderson is his director of nursing and last visit with him was May 2019. In the ER chest x-ray was suggestive of mild CHF with bibasilar atelectases and small pleural effusion. He is admitted for CHF exacerbation. PAST MEDICAL HISTORY: 1. Hypertension. 2. CHF unspecified. 3. Diabetes type 2. 4. CAD, status post stent x2. 5. High cholesterol. PAST SURGICAL HISTORY: 1. Reports appendectomy. 2. Tonsillectomy. 3. Cardiac stent x2. FAMILY MEDICAL HISTORY: He reports mother has diabetes and stroke and father of old age. SOCIAL HISTORY: He denies any tobacco or illicit drug use. Reports he drinks alcohol seldomly. ALLERGIES: NO KNOWN DRUG ALLERGIES. REVIEW OF SYSTEMS: Twelve-system reviewed and negative except as reported in HPI. PHYSICAL EXAMINATION: VITAL SIGNS: Temperature 99.4, pulse is 75, respirations 20, blood pressure 130/65, pulse ox is 99% on 2 L of nasal cannula. GENERAL: In no acute distress. HEENT: Normocephalic, atraumatic. NECK: Supple. LUNGS: Decreased breath sounds and dyspneic. CARDIOVASCULAR: Regular rate and rhythm. GI: Soft, nontender, and obese. NEUROLOGIC: Alert, awake, and oriented x3. MUSCULOSKELETAL: Moves all extremities. SKIN: Dry and intact. PSYCH: Calm. LABORATORY DATA: Troponin negative. WBC 8.3, hemoglobin 11.5, hematocrit 35.9. Sodium 142, potassium 4.3, CO2 26, creatinine 1.9, BUN is 14, blood glucose 124. BNP is 551.4. IMAGING: Chest x-ray showed mild CHF with bibasilar atelectases and small pleural effusion. IMPRESSION: 1. Dyspnea due to acute CHF exacerbation. BNP is 551, chest x-ray noted. Started on Lasix IV b.i.d. We will check echocardiogram. 2. Acute kidney injury. Creatinine is 1.91. We will continue to monitor closely. 3. Hypertension. We will resume home beta blockers t.i.d. 4. Diabetes type 2. Continue sliding scale insulin and glimepiride. 5. History of coronary artery disease, status post stent. We will continue on aspirin, Plavix, and statin. 6. High cholesterol. Continue statin. 7. Sleep apnea. We will resume CPAP at night. 8. Abdomen distention. We will check abdominal ultrasound. 9. DVT prophylaxis. He was started on Lovenox subcu. PLAN: Continue with Lasix IV. We will check echo and abdominal ultrasound. Dictated by THEO Melissa Tiffanie Plaza MD MY/MODL /[id number] Seen and examined on 03/13/20. Agree with the findings and plan as documented by THEO Wade. MTDD
[2020-03-14 05:38] LABS: BASOPHILS % 0.6 % (0.0-1.0); EOSINOPHILS # (AUTO) 0.1 (0.0-0.4); HEMATOCRIT 31.8 % (38.2-49.6); HEMOGLOBIN 10.3 g/dL (14.0-18.0); LYMPHOCYTES # (AUTO) 1.3 (1.0-3.2); LYMPHOCYTES % 20.2 % (18.0-39.1); MEAN CORPUSCULAR HEMOGLOBIN 30.4 pg (28-32); MEAN CORPUSCULAR HGB CONC 32.4 g/dL (31-35); MEAN CORPUSCULAR VOLUME 93.8 fL (81-99); MONOCYTES # (AUTO) 0.8 (0.2-0.8); MONOCYTES % 12.9 % (4.4-11.3); NEUTROPHILS # (AUTO) 4.1 (2.1-6.9); NEUTROPHILS % 63.8 % (38.7-80.0); PLATELET COUNT 201 x10e3/uL (140-360); RED BLOOD COUNT 3.39 x10e6/uL (4.3-5.7); RED CELL DISTRIBUTION WIDTH 14.1 % (11.7-14.4)
[2020-03-14 06:05] LABS: ANION GAP 13.9 mmol/L (8-16); CALCIUM 8.6 mg/dL (8.4-10.2); CREATININE, SERUM 2.08 mg/dL (0.72-1.25); POTASSIUM 3.9 mmol/L (3.5-5.1)
[2020-03-14] MEDS: BUDESONIDE/FORMOTEROL FUMARATE 80/4.5MCG 6.9 GM INH AEROSOL IH SCH ×2 (07:00→19:00)
[2020-03-14] MEDS: INSULIN REGULAR, HUMAN 100 UNIT/1 ML 3ML VIAL SQ SCH ×4 (07:30→20:58)
[2020-03-14] MEDS: CLOPIDOGREL BISULFATE 75 MG TAB PO SCH (08:45)
[2020-03-14] MEDS: ISOSORBIDE MONONITRATE 30 MG TAB CR PO SCH (08:45)
[2020-03-14] MEDS: METOPROLOL TARTRATE 25 MG TAB PO SCH ×3 (08:45→20:58)
[2020-03-14] MEDS: PANTOPRAZOLE SOD 40 MG TABEC PO SCH (08:45)
[2020-03-14] MEDS: GLIMEPIRIDE 2 MG TAB PO SCH ×2 (08:45→16:02)
[2020-03-14] MEDS: ASPIRIN 81 MG CHEW TAB PO SCH (08:45)
[2020-03-14] MEDS: FUROSEMIDE INJ 10 MG/ML 4 ML VIAL IV SCH (08:45)
[2020-03-14] MEDS: FENOFIBRATE 145 MG TAB PO SCH (08:45)
[2020-03-14] MEDS: CLOTRIMAZOLE 1% CR 15 GM TOP SCH (08:45)
--- NOTE | 2020-03-14 09:06 | Diagnostic Imaging Report ---
EXAM: US ABDOMEN LIMITED DATE: 03/14/2020 8:06 AM INDICATION: Ascites COMPARISON: None FINDINGS: Limited sonographic images were obtained of the 4 quadrants for the assessment of ascites. There is no ascites, organized fluid collection, or other sonographically evident abnormality identified. IMPRESSION: No ascites present. Signed by: Dr. Ladarius Meek MD on 03/14/2020 9:02 AM
--- NOTE | 2020-03-14 10:23 | NUR ---
SPOKE WITH ADDICTION COUNSELOR, PT CREAT GOING UP TRANSITION TO INPATIENT.
--- NOTE | 2020-03-14 11:02 | Diagnostic Imaging Report ---
EXAM: CHEST SINGLE (PORTABLE) DATE: 03/14/2020 10:34 AM INDICATION: Shortness of breath COMPARISON: 03/12/2020 FINDINGS: The trachea is midline. There has been interval reduction of previously visualized interstitial and perihilar opacities suggesting resolving edema. There are minimal bibasilar opacity suggestive of atelectasis and/or trace effusions. There is no evidence for focal consolidation, pneumothorax, or significant and volume pleural effusion. The cardiomediastinal silhouette is stable in appearance. Atherosclerotic calcifications are noted within the aortic arch. No acute osseous abnormality is identified. IMPRESSION: Interval reduction of previous visualized interstitial and perihilar opacities suggesting resolving edema. No evidence for new focal consolidation or significant volume pleural effusion. Signed by: Dr. Ladarius Meek MD on 03/14/2020 10:59 AM
--- NOTE | 2020-03-14 11:54 | Progress Note ---
DATE: 03/14/2020 CONSULTANTS: None. SUBJECTIVE: The patient reports breathing is improving, voiding more. He denies any chest pain, nausea, vomiting, fever, or chills. PHYSICAL EXAMINATION: VITAL SIGNS: Temperature 98.1 degrees, pulse is 74, respirations 18, blood pressure 164/84, pulse ox is 97% on room air. GENERAL: No acute distress. HEENT: Normocephalic, atraumatic. NECK: Supple. LUNGS: Decreased breath sounds. CARDIOVASCULAR: Regular rate and rhythm. GI: Soft and nontender, obese. NEUROLOGIC: Alert, awake, and oriented x3 MUSCULOSKELETAL: Moves all extremities. SKIN: Dry and intact. PSYCH: Calm. LABORATORY DATA: WBC 6.42, hemoglobin 10.3, hematocrit 31.8. Sodium 140, potassium 3.9, BUN is 24, creatinine 2.08. Estimated GFR is 32. IMPRESSION: 1. Acute diastolic CHF exacerbation. Shortness of breath improving, we will repeat chest x-ray. We will decrease Lasix to p.o. daily. Echo with EF of 50% to 55%. 2. Acute kidney injury with questionable CKD. Creatinine is 2.0 today, we will decrease Lasix and repeat BMP tomorrow. 3. Hypertension. We will resume beta blockers t.i.d. 4. Diabetes type 2. Continue sliding scale insulin and glimepiride. 5. History of coronary artery disease, status post stent x2. We will continue aspirin, Plavix, and statin. 6. High cholesterol. Continue statin. 7. Sleep apnea. Continue CPAP at night. 8. Deep vein thrombosis prophylaxis. Lovenox subcu. PLAN: Continue current treatment, decrease Lasix and repeat labs in a.m. Anticipate discharge home tomorrow if continues to improve. Dictated by THEO Melissa Tiffanie Plaza MD MY/MODL /[id number] Seen and examined. Agree with the findings and plan as documented by THEO Wade. MTDD
[2020-03-14] MEDS ORDERED: ONDANSETRON HCL 4 MG ORAL DISINTEGRATING TAB PO PRN (12:15)
--- NOTE | 2020-03-14 13:39 | NUR ---
EDUCATED ABOUT IMM, SIGNED, FILED IN CHART, WITH COPY LEFT WITH FAMILY AT BEDSIDE.
--- NOTE | 2020-03-14 14:50 | NUR ---
Nutrition Screen Note RD Recommendation for Physician: -Continue cardiac diet Plan of Care: RD following, monitoring for tolerance and adequacy Nutrition reason for involvement: Diagnosis - CHF Primary Diagnose(s): acute exacerbation of CHF PMH: HTN, CHF, type 2 diabetes, CAD, high cholesterol Ht: 70 in Wt: 270 lb BMI: 38.7 kg/m2 IBW:[address] Assessment: (03/14/20) Chart reviewed. Labs and meds reviewed. Pt is a 74 year old male admitted with acute exacerbation of CHF. Pt reports eating all of his meals and that his weight usually fluctuates. Pt stated he had last weighed 265 lbs at the beginning of February. No N/V, but pt reports constipation. No chewing/swallowing issues. Pt declined the need for diet education and stated he tries to follow a low sodium diet at home. Will continue to monitor. Current Diet: cardiac Malnutrition Evaluation (03/14/20) The patient does not meet criteria for a specified degree of malnutrition at this time. Will re-evaluate at follow-up as appropriate. Diet Education Needs Assessment: pt declined the need for diet education Nutrition Care Level: low Signed: Temi Arias, RD, LD
[2020-03-14] MEDS: ACETAMINOPHEN 325 MG TAB PO SCH (15:00)
[2020-03-14] MEDS ORDERED: TRAMADOL HCL 50 MG TAB PO PRN (15:45)
[2020-03-14] MEDS ORDERED: ENOXAPARIN SOD INJ 40 MG/0.4 ML SYR SC SCH (17:00)
[2020-03-14] MEDS: ATORVASTATIN 20 MG TAB PO SCH (20:58)
[2020-03-15] VITALS: BP 174/82
[2020-03-15] MEDS: ACETAMINOPHEN 325 MG TAB PO SCH (00:54)
[2020-03-15 04:00] VITALS: BP 135/78
[2020-03-15 05:24] LABS: CALCIUM 8.7 mg/dL (8.4-10.2); CREATININE, SERUM 1.89 mg/dL (0.72-1.25)
--- NOTE | 2020-03-15 07:00 | NUR ---
ASSUMED CARE. AAOX3. ACYANOTIC. RESTING IN BED. NO DISTRESS NOTED. CALL LIGHT IN REACH. SIDE RAILS UP X2. BED LOW AND LOCKED.
[2020-03-15] MEDS: INSULIN REGULAR, HUMAN 100 UNIT/1 ML 3ML VIAL SQ SCH ×2 (07:30→12:30)
[2020-03-15 08:00] VITALS: BP 174/77
[2020-03-15] MEDS: CLOTRIMAZOLE 1% CR 15 GM TOP SCH (08:27)
[2020-03-15] MEDS: GLIMEPIRIDE 2 MG TAB PO SCH (08:30)
[2020-03-15] MEDS: PANTOPRAZOLE SOD 40 MG TABEC PO SCH (08:30)
[2020-03-15 08:32] VITALS: BP 174/77
[2020-03-15] MEDS: BUDESONIDE/FORMOTEROL FUMARATE 80/4.5MCG 6.9 GM INH AEROSOL IH SCH (08:40)
[2020-03-15] MEDS ORDERED: FUROSEMIDE 40 MG TAB PO SCH (09:00)
[2020-03-15] MEDS: ASPIRIN 81 MG CHEW TAB PO SCH (09:01)
[2020-03-15] MEDS: FENOFIBRATE 145 MG TAB PO SCH (09:02)
[2020-03-15] MEDS: ISOSORBIDE MONONITRATE 30 MG TAB CR PO SCH (09:02)
[2020-03-15] MEDS: CLOPIDOGREL BISULFATE 75 MG TAB PO SCH (09:02)
[2020-03-15] MEDS: METOPROLOL TARTRATE 25 MG TAB PO SCH (09:02)
[2020-03-15 12:00] VITALS: BP 167/82
[2020-03-15] MEDS ORDERED: LASIX40 MG PO (14:30)
[2020-03-15] MEDS ORDERED: ENOXAPARIN 30 MG/0.3 ML SYR SC SCH (17:00)
--- NOTE | 2020-03-16 20:43 | Discharge Summary ---
PRIMARY CARE DOCTOR: Robi Levine MD. FINAL DIAGNOSIS: Acute diastolic congestive heart failure exacerbation. SECONDARY DIAGNOSES: 1. Presumed stage 3 chronic kidney disease. 2. Hypertension. 3. Diabetes. 4. History of coronary artery disease, status post stent x2. CONSULTANTS: None. PROCEDURES AND STUDIES PERFORMED: Echocardiogram. HISTORY: Per dictated H and P. HOSPITAL COURSE: The patient was started on IV Lasix. His creatinine remained relatively stable. At the time of discharge it was 1.89. The patient's breathing is much better. Chest x-ray is better as well. He was told to start Lasix 40 mg daily at home and follow up with Dr. Levine and his primary care doctor in one week. The patient was also told to stop his metformin given his CKD. I have updated his primary care doctor as well. The patient was seen and examined today. It took 32 minutes total to discharge this patient. CONDITION ON DISCHARGE: Improved. DISCHARGE MEDICATIONS: Please see medication reconciliation form. MD BETSY Dodd/NIYAH /[id number] cc: [facility]
== END 2020-03-15 14:50 | disposition home or self-care (01) | DRG 291 ==
LOC: FSED 15:36 → ERHOLD 17:41 → MED/SURG 19:56 → OBSVTOIN 03-14 10:45
PROVIDERS: ADMIT Internal Medicine; ATTEND Internal Medicine
DX: I13.0 Hypertensive heart and chronic kidney disease with heart failure and stage 1 through stage 4 chronic kidney disease, or unspecified chronic kidney disease (principal); I50.33 Acute on chronic diastolic (congestive) heart failure; N17.9 Acute kidney failure, unspecified; I25.10 Atherosclerotic heart disease of native coronary artery without angina pectoris; Z95.5 Presence of coronary angioplasty implant and graft; E11.22 Type 2 diabetes mellitus with diabetic chronic kidney disease; G47.33 Obstructive sleep apnea (adult) (pediatric); N18.30 Chronic kidney disease, stage 3 unspecified; G47.30 Sleep apnea, unspecified; Z11.59 Encounter for screening for other viral diseases; E78.00 Pure hypercholesterolemia, unspecified
CPT/HCPCS: 36415; 71045; 71046; 76705; 80048; 80053; 82948; 83880; 84484; 85025; 93005; 93306; 94664; 99284; G0378; J1650; J1817; J1885; J1940; J2405

== ENCOUNTER 2020-05-12 11:57 | Emergency (ER) | payer MEDICARE ==
[~2020-05-12] VITALS: Ht 180.3 cm; Wt 120.2 kg
[~2020-05-12 11:57] MED LIST: ALBUTEROL0.63 MG/3 INH; ASPIRIN81 MG PO; ATORVASTATIN CA20 MG PO; CINNAMON500 MG; CLOTRIMAZOLE15 GM TOP; DIOVAN160 MG PO; FISH OIL 1,0001 EAC2; FLUOCINONIDE120 GM TOP; GLIMEPIRIDE2 MG PO; ISOSORBIDE MONO30 MG PO; LANTUS 3ML100 UNITS/ SQ; LASIX40 MG PO; LOTRIMIN AF12 GM TOP; METFORMIN HCL850 MG PO; METOPROLOL TART25 MG PO; METOPROLOL TART75 MG; NITROSTAT0.4 MG SL; ONGLYZA5 MG PO; PLAVIX75 MG PO; PROTONIX40 MG PO; SYMBICORT 80-10.2 GM INH; TRICOR145 MG PO; TYLENOL325 MG PO
[2020-05-12] MEDS ORDERED: ROPINIROLE HCL1 MG PO (12:35)
[2020-05-12] MEDS ORDERED: tylenol arthritis (12:35)
[2020-05-12] MEDS ORDERED: NOVOLOG100 UNIT/1 SC (12:35)
[2020-05-12 13:11] VITALS: BP 172/82
[2020-05-12] MEDS ORDERED: ANUSOL-HC25 MG RC (13:13)
== END 2020-05-12 13:20 | disposition home or self-care (01) ==
LOC: FSED 12:30
DX: K62.5 Hemorrhage of anus and rectum (principal); K64.9 Unspecified hemorrhoids; I10 Essential (primary) hypertension; E11.65 Type 2 diabetes mellitus with hyperglycemia; E78.5 Hyperlipidemia, unspecified; I25.10 Atherosclerotic heart disease of native coronary artery without angina pectoris; E66.01 Morbid (severe) obesity due to excess calories; I25.2 Old myocardial infarction; Z95.1 Presence of aortocoronary bypass graft; Z95.5 Presence of coronary angioplasty implant and graft
CPT/HCPCS: 80053; 85025; 99283

== ENCOUNTER 2021-06-06 14:44 | Inpatient (IN) | payer MEDICARE ==
[~2021-06-06] VITALS: Ht 180.3 cm; Wt 121.8 kg
[~2021-06-06 14:44] MED LIST changes: +ANUSOL-HC25 MG RC; +NOVOLOG100 UNIT/1 SC; +ROPINIROLE HCL1 MG PO; +tylenol arthritis PO
[2021-06-06] MEDS ORDERED: ASPIRIN 325 MG TAB PO ONE (16:45)
[2021-06-06] MEDS ORDERED: CEFTRIAXONE 1 GM in SODIUM CHLORIDE 0.9% 50ML 50 ML IV ONE (16:45)
[2021-06-06] MEDS ORDERED: SODIUM CHLORIDE 0.9% 50ML 50 ML ONE (17:03)
[2021-06-06] MEDS ORDERED: CEFTRIAXONE 1 GM VIAL ONE (17:03)
[2021-06-06] MEDS ORDERED: ASPIRIN 81 MG CHEW TAB ONE (17:03)
[2021-06-06] MEDS ORDERED: AMLODIPINE BESYL5 MG PO (19:05)
[2021-06-06] MEDS ORDERED: CEPHALEXIN500 MG PO (19:05)
[2021-06-06] MEDS ORDERED: CARVEDILOL12.5 MG PO (19:05)
[2021-06-06] MEDS ORDERED: MIRALAX17 GM PO (19:05)
[2021-06-06] MEDS ORDERED: DOCUSATE SODIU100 MG PO (19:05)
[2021-06-06] MEDS ORDERED: BASAGLAR K100 UNIT/1 SQ (19:05)
[2021-06-06] MEDS ORDERED: NOVOLOG MI100 UNIT/1 SC (19:05)
[2021-06-06] MEDS ORDERED: BENZONATATE200 MG PO (19:05)
[2021-06-06 20:15] VITALS: BP 167/72
[2021-06-06 21:00] VITALS: BP 167/72
[2021-06-06] MEDS: ATORVASTATIN 20 MG TAB PO SCH (21:40)
[2021-06-06] MEDS: CARVEDILOL 12.5 MG TAB PO SCH (21:40)
[2021-06-06] MEDS: INSULIN LISPRO 100 UNIT/1 ML 3ML VIAL SQ SCH (21:41)
[2021-06-06] MEDS: ACETAMINOPHEN 325 MG TAB PO PRN (21:41)
[2021-06-07] VITALS (7 sets, daily range): BP systolic 124–160; BP diastolic 56–79
[2021-06-07] MEDS ORDERED: NOVOLOG100 UNIT/1 SC (02:22)
[2021-06-07] MEDS ORDERED: TRICOR48 MG PO (02:22)
[2021-06-07] MEDS ORDERED: VENTOLIN HFA18 GM INH (02:22)
[2021-06-07 03:57] LABS: CREATINE KINASE MB 1.5 ng/mL (0-5.0)
[2021-06-07 04:14] LABS: CLARITY,URINE CLOUDY (CLEAR); COLOR,URINE YELLOW (YELLOW); LEUKOCYTE ESTERASE ,URINE SMALL (NEGATIVE)
[2021-06-07 04:15] LABS: KETONES,URINE NEGATIVE (NEGATIVE); NITRITE,URINE POSITIVE (NEGATIVE); PROTEIN,URINE DIPSTICK 1+ (NEGATIVE); URINE UROBILINOGEN 0.2 mg/dL (0.2 - 1)
[2021-06-07 04:16] LABS: BACTERIA,URINE MANY /HPF; EPITHELIAL CELLS,URINE MANY /LPF; RBC,URINE 21-50 /HPF (0-5); WBC,URINE (MAN) >50 /HPF (0-5)
[2021-06-07] MEDS: ACETAMINOPHEN 325 MG TAB PO PRN (05:39)
[2021-06-07] MEDS: INSULIN LISPRO 100 UNIT/1 ML 3ML VIAL SQ SCH ×4 (07:30→20:59)
[2021-06-07] MEDS: ASPIRIN 81 MG ENTERIC COATED PO SCH (07:59)
[2021-06-07] MEDS: CARVEDILOL 12.5 MG TAB PO SCH ×2 (07:59→20:56)
[2021-06-07] MEDS ORDERED: CLOPIDOGREL BISULFATE 75 MG TAB PO SCH (09:00)
[2021-06-07 09:40] LABS: BASOPHILS % 0.4 % (0.0-1.0); EOSINOPHILS % 0.1 % (0.0-6.0); HEMOGLOBIN 9.8 g/dL (14.0-18.0); LYMPHOCYTES # (AUTO) 0.7 (1.0-3.2); LYMPHOCYTES % 9.6 % (18.0-39.1); MEAN CORPUSCULAR HEMOGLOBIN 28.3 pg (28-32); MEAN CORPUSCULAR HGB CONC 31.6 g/dL (31-35); MEAN CORPUSCULAR VOLUME 89.6 fL (81-99); MONOCYTES # (AUTO) 0.7 (0.2-0.8); MONOCYTES % 9.6 % (4.4-11.3); NEUTROPHILS % 79.4 % (38.7-80.0); PLATELET COUNT 201 x10e3/uL (140-360); RED BLOOD COUNT 3.46 x10e6/uL (4.3-5.7); RED CELL DISTRIBUTION WIDTH 14.2 % (11.7-14.4)
[2021-06-07 10:08] LABS: ANION GAP 13.2 mmol/L (8-16); CALCIUM 8.8 mg/dL (8.4-10.2); CHOL/HDL RATIO 6.1 (3.9-4.7); CREATININE, SERUM 1.95 mg/dL (0.72-1.25); POTASSIUM 4.2 mmol/L (3.5-5.1)
[2021-06-07 10:32] LABS: CREATINE KINASE MB 2.3 ng/mL (0-5.0)
[2021-06-07] MEDS ORDERED: ONDANSETRON HCL INJ 2MG/ML 2ML 2 MG/ML VIAL IV PRN (15:15)
[2021-06-07] MEDS ORDERED: SODIUM CHLORIDE 0.9% 250ML 250 ML ONE (15:42)
[2021-06-07] MEDS ORDERED: CEFTRIAXONE 1 GM in SODIUM CHLORIDE 0.9% 50ML 50 ML IV SCH (17:00)
[2021-06-07] MEDS: ATORVASTATIN 20 MG TAB PO SCH (20:56)
[2021-06-07] MEDS ORDERED: HEPARIN SOD (PORCINE) 5,000 UNIT/ML VIAL SC ONE (22:15)
[2021-06-07] MEDS ORDERED: ACETYLCYSTEINE 20% INHAL SOLN 30 ML VIAL PO SCH (22:15)
[2021-06-07] MEDS ORDERED: ACETYLCYSTEINE 200 MG/ML 4ML VIAL ONE (23:03)
[2021-06-07] MEDS: ACETYLCYSTEINE 200 MG/ML 4ML VIAL PO SCH (23:08)
[2021-06-07] MEDS: SODIUM CHLORIDE 0.9% 1000ML 1,000 ML IV SCH (23:16)
[2021-06-08] VITALS (11 sets, daily range): BP systolic 115–156; BP diastolic 60–87
[2021-06-08 05:38] LABS: BASOPHILS % 0.4 % (0.0-1.0); EOSINOPHILS # (AUTO) 0.1 (0.0-0.4); EOSINOPHILS % 1.2 % (0.0-6.0); HEMATOCRIT 32.9 % (38.2-49.6); HEMOGLOBIN 10.6 g/dL (14.0-18.0); LYMPHOCYTES # (AUTO) 1.3 (1.0-3.2); LYMPHOCYTES % 17.9 % (18.0-39.1); MEAN CORPUSCULAR HEMOGLOBIN 28.6 pg (28-32); MEAN CORPUSCULAR HGB CONC 32.2 g/dL (31-35); MEAN CORPUSCULAR VOLUME 88.7 fL (81-99); MONOCYTES # (AUTO) 0.9 (0.2-0.8); MONOCYTES % 11.4 % (4.4-11.3); NEUTROPHILS # (AUTO) 5.1 (2.1-6.9); NEUTROPHILS % 68.4 % (38.7-80.0); PLATELET COUNT 231 x10e3/uL (140-360); RED BLOOD COUNT 3.71 x10e6/uL (4.3-5.7); RED CELL DISTRIBUTION WIDTH 14.1 % (11.7-14.4)
[2021-06-08 06:00] LABS: INR 1.05; PROTHROMBIN TIME 14.5 seconds (11.9-14.5)
[2021-06-08 06:06] LABS: ALBUMIN 2.5 g/dL (3.5-5.0); ALBUMIN/GLOBULIN RATIO 0.6 (0.8-2.0); ANION GAP 12.2 mmol/L (8-16); CALCIUM 8.8 mg/dL (8.4-10.2); CREATININE, SERUM 1.76 mg/dL (0.72-1.25); POTASSIUM 4.2 mmol/L (3.5-5.1)
[2021-06-08] MEDS: INSULIN LISPRO 100 UNIT/1 ML 3ML VIAL SQ SCH (07:30)
[2021-06-08] MEDS ORDERED: FENTANYL CITRATE/PF 100MCG/2 ML INJ ONE (08:18)
[2021-06-08] MEDS ORDERED: LIDOCAINE HCL 2% LOCAL 20 ML VIAL ONE (08:18)
[2021-06-08] MEDS ORDERED: MIDAZOLAM HCL 2 MG/2 ML VIAL ONE (08:18)
[2021-06-08] MEDS ORDERED: VERAPAMIL HCL 2.5 MG/ML 2 ML VIAL ONE (08:18)
[2021-06-08] MEDS ORDERED: HEPARIN SOD (PORCINE) 1000 UNIT/ML 30ML ONE (08:18)
[2021-06-08] MEDS ORDERED: SODIUM CHLORIDE 0.9% 1000ML 1,000 ML ONE (08:19)
[2021-06-08] MEDS ORDERED: IOPAMIDOL 370 MG/ML 200 ML INFUS..BTL INJ ONE (08:19)
[2021-06-08] MEDS ORDERED: HEPARIN SOD/SOD CHLORIDE 2,000 ML ONE (08:19)
[2021-06-08] MEDS ORDERED: NITROGLYCERIN/D5W 200 MCG/ML 250 ML ONE (08:19)
[2021-06-08] MEDS: ACETYLCYSTEINE 200 MG/ML 4ML VIAL PO SCH (09:00)
[2021-06-08] MEDS: ASPIRIN 81 MG ENTERIC COATED PO SCH (09:00)
[2021-06-08] MEDS: CARVEDILOL 12.5 MG TAB PO SCH (09:00)
[2021-06-08] MEDS ORDERED: SODIUM CHLORIDE 0.9% 1000ML 1,000 ML IV SCH (10:00)
[2021-06-08] MEDS: SODIUM CHLORIDE 0.9% 1000ML 1,000 ML IV SCH (12:45)
== END 2021-06-08 13:32 | disposition short-term general hospital (02) | DRG 281 ==
LOC: FSED 14:49 → ERHOLD 17:14 → MED/SURG 20:16
PROVIDERS: ADMIT Internal Medicine; ATTEND Internal Medicine
PROC: 4A023N7 Measurement of Cardiac Sampling and Pressure, Left Heart, Percutaneous Approach (ICD-10-PCS; principal; 2021-06-08)
PROC: B2111ZZ Fluoroscopy of Multiple Coronary Arteries using Low Osmolar Contrast (ICD-10-PCS; 2021-06-08)
PROC: B2151ZZ Fluoroscopy of Left Heart using Low Osmolar Contrast (ICD-10-PCS; 2021-06-08)
DX: I21.4 Non-ST elevation (NSTEMI) myocardial infarction (principal); N39.0 Urinary tract infection, site not specified; I13.0 Hypertensive heart and chronic kidney disease with heart failure and stage 1 through stage 4 chronic kidney disease, or unspecified chronic kidney disease; I50.32 Chronic diastolic (congestive) heart failure; E11.22 Type 2 diabetes mellitus with diabetic chronic kidney disease; N18.30 Chronic kidney disease, stage 3 unspecified; Z79.899 Other long term (current) drug therapy; I25.10 Atherosclerotic heart disease of native coronary artery without angina pectoris; Z20.822 Contact with and (suspected) exposure to COVID-19; E66.9 Obesity, unspecified; Z68.37 Body mass index [BMI] 37.0-37.9, adult
CPT/HCPCS: 36415; 71045; 80048; 80053; 80061; 81001; 81003; 82550; 82553; 82948; 84484; 85025; 85610; 87086; 87186; 93005; 93306; 93458; 99152; 99153; 99284; C1769; C1887; J0696; J1644; J2001; J2250; J2405; J3010; J7030; J7050; Q9967; U0002

== ENCOUNTER 2022-09-10 12:17 | Inpatient (IN) | payer MEDICARE ==
[~2022-09-10] VITALS: Ht 175.3 cm; Wt 120.2 kg
[~2022-09-10 12:17] MED LIST changes: +AMLODIPINE BESYL5 MG PO; +BASAGLAR K100 UNIT/1 SQ; +BENZONATATE200 MG PO; +CARVEDILOL12.5 MG PO; +CEPHALEXIN500 MG PO; +DOCUSATE SODIU100 MG PO; +MIRALAX17 GM PO; +NOVOLOG MI100 UNIT/1 SC; +TRICOR48 MG PO; +VENTOLIN HFA18 GM INH
[2022-09-10] MEDS ORDERED: SODIUM CHLORIDE FLUSH 10 ML SYR INJ PRN (13:30)
[2022-09-10] MEDS ORDERED: ENALAPRILAT IV INJ 1.25 MG/ML VIAL IV PRN (13:30)
[2022-09-10] MEDS ORDERED: ONDANSETRON HCL INJ 2MG/ML 2ML 2 MG/ML VIAL IV PRN (13:30)
[2022-09-10] MEDS ORDERED: DIPHENHYDRAMINE HCL INJ 50 MG/ML VIAL IV PRN (13:30)
[2022-09-10] MEDS ORDERED: PIPERACILLIN/TAZOBACTAM 3.375 GM VIAL ONE (13:57)
[2022-09-10 16:32] VITALS: BP 155/75
[2022-09-10] MEDS ORDERED: HYDRALAZINE HCL50 MG PO (17:40)
[2022-09-10] MEDS ORDERED: FEROSUL325 MG PO (17:40)
[2022-09-10] MEDS ORDERED: FLONASE ALLERG9.9 ML INH (17:40)
[2022-09-10] MEDS ORDERED: FLOMAX0.4 MG PO (17:40)
[2022-09-10] MEDS ORDERED: SOLIQUA 100 UNIT3 ML (17:40)
[2022-09-10] MEDS ORDERED: ROPINIROLE HCL2 MG (17:40)
[2022-09-10] MEDS ORDERED: LOTRIMIN AF12 GM TOP (17:40)
[2022-09-10 17:43] VITALS: BP 155/75
[2022-09-10] MEDS ORDERED: ALBUTEROL SULFATE HFA 8GM INHALATION AEROSOL INH PRN (18:45)
[2022-09-10] MEDS ORDERED: ACETAMINOPHEN 325 MG TAB PO PRN (18:45)
[2022-09-10] MEDS ORDERED: ALBUTEROL SULF 0.083% NEB SOLN 3 ML NEB INH PRN (18:45)
[2022-09-10] MEDS ORDERED: DEXTROSE 50% SYRINGE 50 ML IV PRN (19:15)
[2022-09-10 20:59] VITALS: BP 173/73
[2022-09-10] MEDS: INSULIN REGULAR, HUMAN 100 UNIT/1 ML SQ SCH (21:00)
[2022-09-10] MEDS ORDERED: TAMSULOSIN HCL 0.4 MG CAP PO SCH (21:00)
[2022-09-10] MEDS ORDERED: ATORVASTATIN 20 MG TAB PO SCH (21:00)
[2022-09-10] MEDS: TAMSULOSIN HCL 0.4 MG CAP PO SCH (21:23)
[2022-09-10] MEDS: ROPINIROLE HCL 2 MG TAB PO SCH (21:24)
[2022-09-10] MEDS: ATORVASTATIN 20 MG TAB PO SCH (21:24)
[2022-09-10] MEDS ORDERED: SODIUM CHLORIDE 0.9% 250ML 250 ML ONE (21:32)
[2022-09-10] MEDS: INSULIN GLARGINE 100 UNITS/ML VIAL SQ SCH (21:42)
[2022-09-11] VITALS (9 sets, daily range): BP systolic 149–157; BP diastolic 71–92
[2022-09-11 06:39] LABS: BASOPHILS # (AUTO) 0.1 (0.0-0.1); BASOPHILS % 0.6 % (0.0-1.0); EOSINOPHILS # (AUTO) 0.2 (0.0-0.4); EOSINOPHILS % 2.5 % (0.0-6.0); HEMATOCRIT 35.8 % (38.2-49.6); HEMOGLOBIN 12.1 g/dL (14.0-18.0); LYMPHOCYTES # (AUTO) 1.7 (1.0-3.2); LYMPHOCYTES % 20.6 % (18.0-39.1); MEAN CORPUSCULAR HEMOGLOBIN 30.3 pg (28-32); MEAN CORPUSCULAR HGB CONC 33.8 g/dL (31-35); MEAN CORPUSCULAR VOLUME 89.7 fL (81-99); MONOCYTES # (AUTO) 0.8 (0.2-0.8); MONOCYTES % 9.5 % (4.4-11.3); NEUTROPHILS # (AUTO) 5.4 (2.1-6.9); NEUTROPHILS % 66.6 % (38.7-80.0); PLATELET COUNT 228 x10e3/uL (140-360); RED BLOOD COUNT 3.99 x10e6/uL (4.3-5.7); RED CELL DISTRIBUTION WIDTH 13.1 % (11.7-14.4)
[2022-09-11 06:51] LABS: ANION GAP 14.3 mmol/L (8-16); CALCIUM 9.1 mg/dL (8.4-10.2); CREATININE, SERUM 1.55 mg/dL (0.72-1.25); POTASSIUM 4.3 mmol/L (3.5-5.1)
[2022-09-11] MEDS: INSULIN REGULAR, HUMAN 100 UNIT/1 ML SQ SCH ×4 (07:30→20:22)
[2022-09-11] MEDS ORDERED: IOPAMIDOL 610MG/1ML 300 MG/ML VIAL IV ONE (08:54)
[2022-09-11] MEDS: DOCUSATE SODIUM 100 MG CAP PO SCH ×2 (09:00→18:01)
[2022-09-11] MEDS: CARVEDILOL 12.5 MG TAB PO SCH ×2 (09:00→18:02)
[2022-09-11] MEDS ORDERED: BUDESONIDE/FORMOTEROL FUMARATE 80/4.5MCG 6.9 GM INH AEROSOL IH SCH (09:00)
[2022-09-11] MEDS: POLYETHYLENE GLYCOL 3350 17 GM PACK PO SCH ×2 (09:00→14:52)
[2022-09-11] MEDS: ISOSORBIDE MONONITRATE 30 MG TAB CR PO SCH (09:00)
[2022-09-11] MEDS: FENOFIBRATE 48 MG TAB PO SCH (09:00)
[2022-09-11] MEDS: HYDRALAZINE HCL 25 MG TAB PO SCH ×2 (09:00→18:01)
[2022-09-11] MEDS: HYDROCORTISONE ACETATE 25 MG/SUPP.RECT SUPP RC SCH ×2 (09:00→17:00)
[2022-09-11] MEDS: PANTOPRAZOLE SOD 40 MG TABEC PO SCH (09:00)
[2022-09-11] MEDS: FUROSEMIDE 40 MG TAB PO SCH (09:00)
[2022-09-11] MEDS ORDERED: ACETAMINOPHEN/CODEINE 300MG - 30MG TAB PO PRN (09:15)
[2022-09-11] MEDS: SODIUM CHLORIDE 0.9% 1000ML 1,000 ML IV SCH (11:52)
[2022-09-11] MEDS ORDERED: PROPOFOL IV EMULSION 10 MG/ML 20 ML VIAL ONE (12:32)
[2022-09-11] MEDS ORDERED: POVIDONE IODINE 0.05% 0.05 % ML PO ONE (12:32)
[2022-09-11] MEDS ORDERED: LIDOCAINE HCL 2% LOCAL INJ 5 ML SDV VIAL INJ ONE (12:32)
[2022-09-11] MEDS ORDERED: SEVOFLURANE INHAL SOLN 250 ML PEN BTL ONE (12:32)
[2022-09-11] MEDS ORDERED: FENTANYL CITRATE/PF 100MCG/2 ML INJ ONE (13:04)
[2022-09-11] MEDS ORDERED: MIDAZOLAM HCL 2 MG/2 ML VIAL ONE (13:04)
[2022-09-11] MEDS: TAMSULOSIN HCL 0.4 MG CAP PO SCH (20:15)
[2022-09-11] MEDS: ROPINIROLE HCL 2 MG TAB PO SCH (20:15)
[2022-09-11] MEDS: ATORVASTATIN 20 MG TAB PO SCH (20:15)
[2022-09-11] MEDS: INSULIN GLARGINE 100 UNITS/ML VIAL SQ SCH (20:22)
[2022-09-12] VITALS (7 sets, daily range): BP systolic 121–154; BP diastolic 62–94
[2022-09-12 06:54] LABS: ANION GAP 12.1 mmol/L (8-16); CALCIUM 8.6 mg/dL (8.4-10.2); CREATININE, SERUM 1.57 mg/dL (0.72-1.25); POTASSIUM 4.1 mmol/L (3.5-5.1)
[2022-09-12] MEDS: INSULIN REGULAR, HUMAN 100 UNIT/1 ML SQ SCH ×4 (07:30→21:26)
[2022-09-12] MEDS: HYDROCORTISONE ACETATE 25 MG/SUPP.RECT SUPP RC SCH ×2 (08:17→16:30)
[2022-09-12] MEDS: POLYETHYLENE GLYCOL 3350 17 GM PACK PO SCH (09:43)
[2022-09-12] MEDS: PANTOPRAZOLE SOD 40 MG TABEC PO SCH (09:44)
[2022-09-12] MEDS: FUROSEMIDE 40 MG TAB PO SCH (09:44)
[2022-09-12] MEDS: FENOFIBRATE 48 MG TAB PO SCH (09:44)
[2022-09-12] MEDS: HYDRALAZINE HCL 25 MG TAB PO SCH ×2 (09:44→17:19)
[2022-09-12] MEDS: ISOSORBIDE MONONITRATE 30 MG TAB CR PO SCH (09:44)
[2022-09-12] MEDS: DOCUSATE SODIUM 100 MG CAP PO SCH ×2 (09:45→17:19)
[2022-09-12] MEDS: CARVEDILOL 12.5 MG TAB PO SCH ×2 (09:45→17:19)
[2022-09-12] MEDS: SODIUM CHLORIDE 0.9% 1000ML 1,000 ML IV SCH (09:46)
[2022-09-12] MEDS ORDERED: FUROSEMIDE INJ 10 MG/ML 4 ML VIAL IV ONE (13:15)
[2022-09-12] MEDS: TAMSULOSIN HCL 0.4 MG CAP PO SCH (21:17)
[2022-09-12] MEDS: ATORVASTATIN 20 MG TAB PO SCH (21:18)
[2022-09-12] MEDS: ROPINIROLE HCL 2 MG TAB PO SCH (21:18)
[2022-09-12] MEDS: INSULIN GLARGINE 100 UNITS/ML VIAL SQ SCH (21:26)
[2022-09-13] VITALS: BP 119/72
[2022-09-13 04:00] VITALS: BP 144/65
[2022-09-13 05:56] LABS: BASOPHILS # (AUTO) 0.1 (0.0-0.1); BASOPHILS % 0.6 % (0.0-1.0); EOSINOPHILS # (AUTO) 0.2 (0.0-0.4); EOSINOPHILS % 2.3 % (0.0-6.0); HEMATOCRIT 34.2 % (38.2-49.6); HEMOGLOBIN 11.4 g/dL (14.0-18.0); LYMPHOCYTES # (AUTO) 1.8 (1.0-3.2); LYMPHOCYTES % 20.3 % (18.0-39.1); MEAN CORPUSCULAR HEMOGLOBIN 29.9 pg (28-32); MEAN CORPUSCULAR HGB CONC 33.3 g/dL (31-35); MEAN CORPUSCULAR VOLUME 89.8 fL (81-99); MONOCYTES # (AUTO) 0.8 (0.2-0.8); MONOCYTES % 9.4 % (4.4-11.3); NEUTROPHILS # (AUTO) 5.8 (2.1-6.9); NEUTROPHILS % 66.9 % (38.7-80.0); PLATELET COUNT 244 x10e3/uL (140-360); RED BLOOD COUNT 3.81 x10e6/uL (4.3-5.7); RED CELL DISTRIBUTION WIDTH 13.2 % (11.7-14.4)
[2022-09-13 06:25] LABS: ANION GAP 13.9 mmol/L (8-16); CALCIUM 8.7 mg/dL (8.4-10.2); CREATININE, SERUM 1.8 mg/dL (0.72-1.25); POTASSIUM 3.9 mmol/L (3.5-5.1)
[2022-09-13] MEDS: INSULIN REGULAR, HUMAN 100 UNIT/1 ML SQ SCH (07:30)
[2022-09-13 08:14] VITALS: BP 156/71
[2022-09-13] MEDS: FENOFIBRATE 48 MG TAB PO SCH (08:23)
[2022-09-13] MEDS: POLYETHYLENE GLYCOL 3350 17 GM PACK PO SCH ×2 (08:25→09:00)
[2022-09-13] MEDS: HYDRALAZINE HCL 25 MG TAB PO SCH (08:27)
[2022-09-13] MEDS: FUROSEMIDE 40 MG TAB PO SCH (08:28)
[2022-09-13] MEDS: CARVEDILOL 12.5 MG TAB PO SCH (08:28)
[2022-09-13] MEDS: PANTOPRAZOLE SOD 40 MG TABEC PO SCH (08:28)
[2022-09-13] MEDS: DOCUSATE SODIUM 100 MG CAP PO SCH ×2 (08:28→09:00)
[2022-09-13 08:45] VITALS: BP 156/71
[2022-09-13] MEDS: HYDROCORTISONE ACETATE 25 MG/SUPP.RECT SUPP RC SCH (09:00)
[2022-09-13] MEDS: ISOSORBIDE MONONITRATE 30 MG TAB CR PO SCH (09:00)
[2022-09-13] MEDS ORDERED: BACTRIM 400-801 EACH PO (11:42)
[2022-09-13 12:21] VITALS: BP 138/71
[2022-09-13] MEDS ORDERED: ONDANSETRON HCL 4 MG ORAL DISINTEGRATING TAB PO PRN (12:30)
[2022-09-14] MEDS ORDERED: CLOPIDOGREL BISULFATE 75 MG TAB PO SCH (09:00)
[2022-09-14] MEDS ORDERED: FERROUS SULFATE 325 MG TAB PO SCH (09:00)
== END 2022-09-13 12:37 | disposition home or self-care (01) | DRG 699 ==
LOC: FSED 12:22 → ERHOLD 13:19 → MED/SURG2 16:01 → OBSVTOIN 18:05
PROVIDERS: ADMIT Internal Medicine; ATTEND Internal Medicine
PROC: 0TC Urinary System, Extirpation (ICD-10-PCS; principal; 2022-09-11 09:03)
DX: T19.0XXA Foreign body in urethra, initial encounter (principal); I13.0 Hypertensive heart and chronic kidney disease with heart failure and stage 1 through stage 4 chronic kidney disease, or unspecified chronic kidney disease; N39.0 Urinary tract infection, site not specified; E11.22 Type 2 diabetes mellitus with diabetic chronic kidney disease; N18.9 Chronic kidney disease, unspecified; I25.10 Atherosclerotic heart disease of native coronary artery without angina pectoris; N40.0 Benign prostatic hyperplasia without lower urinary tract symptoms; J44.9 Chronic obstructive pulmonary disease, unspecified; I25.2 Old myocardial infarction; N48.29 Other inflammatory disorders of penis; E78.00 Pure hypercholesterolemia, unspecified; E66.9 Obesity, unspecified; Z68.39 Body mass index [BMI] 39.0-39.9, adult; Z79.4 Long term (current) use of insulin; Z95.5 Presence of coronary angioplasty implant and graft; Z95.1 Presence of aortocoronary bypass graft; Z79.82 Long term (current) use of aspirin; Z20.822 Contact with and (suspected) exposure to COVID-19
CPT/HCPCS: 36415; 74420; 80048; 82948; 85025; 87086; 88300; 99284; C1758; J1940; J2001; J2250; J2543; J7030; J7050